=== PATIENT | male | born 1980 | race Two or more races ===

== ENCOUNTER 2016-12-20 23:54 | Emergency (ER) | payer OTHER ==
[~2016-12-20] VITALS: Ht 170.2 cm; Wt 63.5 kg
--- NOTE | 2016-12-21 01:10 | NUR ---
TO BED 2 A 36 YO MALE BIBSELF W C/O "MY BLOOD PRESSURE WAS HIGH AT 140 AND I GOT SCARED CAUSE IT'S TOO HIGH AND MY CHEST STARTED HURTING." VSS. NONDIAPHORETIC. NAD NOTED. NOTED ANXIOUS. COMFORT MEASURES RENDERED.
--- NOTE | 2016-12-21 01:22 | NUR ---
DR RAM AT BEDSIDE TO EVAL.
--- NOTE | 2016-12-21 01:35 | NUR ---
Patient discharged to home in stable condition. Written and verbal after care instructions given. Patient verbalizes understanding of instruction. Patient is ambulatory with steady gait, no further complaints.
[2016-12-21 01:36] VITALS: BP 129/84
== END 2016-12-21 01:37 | disposition home or self-care (01) ==
LOC: ER 12-21 00:02
DX: F41.9 Anxiety disorder, unspecified (principal)
CPT/HCPCS: 93005; 99284; A4606; Z7610